=== PATIENT | male | born 1970 | race Caucasian/White ===

== ENCOUNTER 2021-01-13 17:42 | Emergency (ER) | payer BC, SELFPAY ==
[2021-01-13 17:46] VITALS: BP 154/74; PULSE 57; RESP 16; TEMP 36.8; O2SAT 98; BMI 26.6
[2021-01-13 18:05] VITALS: BP 154/74; PULSE 57; RESP 16; TEMP 36.8; O2SAT 98; BMI 26.6
--- NOTE | 2021-01-13 19:08 | HMH.EDUTC ---
[facility] Disposition Clinical Impression: Need for Tdap vaccination Laceration of scalp Qualifiers: Encounter type: initial encounter Qualified Code(s): S01.01XA - Laceration without foreign body of scalp, initial encounter Disposition: Home, Self-Care Condition on Discharge: Good Instructions: DI for Laceration Repair -- [place] Additional Instructions: Keep the wound clean and dry. Watch the for signs of infection, such as redness, swelling, drainage, fever. etc. Take tylenol or ibuprofen for pain. Follow up with her regular doctor. Return in 7 days to have the yulisa removed. GO TO THE ER FOR ANY WORSENING SYMPTOMS OR CONCERNS. Referrals: Joselito Huizar MD [Primary Care Provider] - Time of Disposition: 19:10 Medical Decision Making - Medical Records Medical records reviewed: No: I reviewed the patient's medical records. - Aiden Inquiry Pt receiving controlled substance: No Vital Signs: 01/13/21 17:46 01/13/21 18:05 01/13/21 19:14 Temperature 98.3 F 98.3 F 98.3 F Temperature Source Oral Oral Pulse Rate 57 L Pulse Rate [Right] 57 L 57 L Respiratory Rate 16 16 16 Blood Pressure 154/74 H Blood Pressure [Right Arm] 154/74 H 154/74 H Blood Pressure Mean [Right Arm] 100 100 Blood Pressure Source [Right Arm] Automatic Cuff Automatic Cuff Blood Pressure Position [Right Arm] Sitting Sitting 02 Sat by Pulse Oximetry 98 98 Oxygen Delivery Method Room Air Room Air Orders (Tests/Meds): ED MEDICATIONS Discontinued Medications Generic Name Dose Route Start Last Admin Trade Name Freq PRN Reason Stop Dose Admin Tetanus/Reduced Diphtheria/Acell Pertussis 0.5 ml 01/13/21 18:06 01/13/21 18:30 Tet/Diphth/Pert-Adult 0.5ml Syringe IM 01/13/21 18:07 0.5 ml .ONCE ONE Administration [facility] HPI - General Stated complaint: AO 1545 laceration on head Time Seen by Provider: 01/13/21 19:08 Mode of Arrival: Ambulatory Source of Information: Patient Limitations: No Limitations Description of Symptoms (Recalled from Triage Doc. 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 He received a laceration to his scalp, just above his forehead. He denies any loss of conciousness. - Related Data Allergies Allergy/AdvReac Type Severity Reaction Status Date / Time No Known Allergies Allergy Verified 09/12/19 14:32 - Worker's Comp Is this a Worker's Comp case?: No [facility] History - Hepatitis A Screen Drug use history?: No High risk sexual behaviors?: No History of sexually transmitted infection?: No Currently employed?: No Childcare worker?: No Do you have indoor plumbing?: Yes Do you have electricity?: Yes Attestation statement:: This patient has been screened for Hepatitis A risk factors. I have reviewed the patient's past medical history: Yes - Social History Smoking Status: Never smoker Alcohol Intake: never Alcohol Intake Frequency:: holidays/special occasions only Occupational Status: employed Family Hx:: Non-contributory ROS Obtained: Yes All systems reviewed & no additional complaints - Constitutional Constitutional: Denies chills, Denies fever(s) - Musculoskeletal Musculoskeletal: Denies back pain, Denies neck pain - Integumentary/Breasts Skin/Breast: Reports as per HPI - Neurologic Neurologic: Denies tingling/numbness/burning sensations Physical Exam - General General appearance: alert, in no apparent distress - Head Head exam: atraumatic, normocephalic, normal inspection - Eye Eye exam: Present: normal appearance, PERRL, EOMI - ENT ENT exam: Present: nor
[2021-01-13 19:14] VITALS: BP 154/74; PULSE 57; RESP 16; TEMP 36.8; O2SAT 98
== END 2021-01-13 19:17 | disposition home or self-care (01) ==
PROVIDERS: Emergency Provider Nurse Practitioner Family; PCP Family Medicine
DX: S01.01XA Laceration without foreign body of scalp, initial encounter (principal); W22.8XXA Striking against or struck by other objects, initial encounter; Y92.019 Unspecified place in single-family (private) house as the place of occurrence of the external cause; Z23 Encounter for immunization
CPT/HCPCS: 12002; 90715; 99202; G0463

== ENCOUNTER 2021-01-20 17:08 | Emergency (ER) | payer BC, SELFPAY ==
[2021-01-20 17:10] VITALS: BP 124/81; PULSE 80; RESP 20; TEMP 36.1; O2SAT 98; BMI 34.4
[2021-01-20 17:13] VITALS: BP 124/81; PULSE 80; RESP 20; TEMP 36.1; O2SAT 98
== END 2021-01-20 17:15 | disposition home or self-care (01) ==
LOC: UTC 17:10
PROVIDERS: Emergency Provider Nurse Practitioner; PCP Family Medicine
DX: S01.01XD Laceration without foreign body of scalp, subsequent encounter (principal)

== ENCOUNTER → 2021-11-13 10:47 | Outpatient (CLI) | payer BC, SELFPAY ==
[2021-11-13 12:18] LABS: Chloride 105 mmol/L (98-107)
[2021-11-13 12:19] LABS: Potassium 4.6 mmoL/L (3.5-5.1); Sodium 141 mmol/L (136-145)
[2021-11-13 12:21] LABS: Alanine Aminotransferase 42 U/L (12-78); Anion Gap 13.6 mEq/L (5-15); Aspartate Amino Transferase 33 U/L (17-59); Blood Urea Nitrogen 14 mg/dl (9-20); Carbon Dioxide 27 mmol/L (22.0-30.0); Estimated Glomerular Filt Rate 64 ml/min (>60); GFR (African American) 77 ML/MIN (>60)
[2021-11-13 12:22] LABS: Albumin Level 4.3 g/dl (3.5-5.0); Albumin/Globulin Ratio 1.4 (1.1-1.8); Alkaline Phosphatase 58 U/L (38-126); Bilirubin,Total 0.6 mg/dl (0.2-1.3); Chol/HDL Ratio 5.9 (1-3.5); Cholesterol 241 mg/dl (140-200); HDL Cholesterol 41 mg/dl (40-60); Total Protein,Serum 7.3 g/dl (6.3-8.2); Triglycerides 237 mg/dl (30-150); VLDL Cholesterol 47 mg/dL (0-40)
[2021-11-13 12:27] LABS: Glucose 93 mg/dl (74-100)
[2021-11-13 12:28] LABS: Calcium 9.1 mg/dl (8.4-10.2)
[2021-11-13 12:33] LABS: Direct LDL Cholesterol 159.92 mg/dL (100-129)
== END ==
PROVIDERS: Visit Provider Nurse Practitioner Family
DX: Z00.00 Encounter for general adult medical examination without abnormal findings (principal)
CPT/HCPCS: 36415; 80053; 80061

== ENCOUNTER → 2021-12-03 15:21 | Outpatient (CLI) | payer BC, SELFPAY | PROVIDERS: PCP Nurse Practitioner Family; Visit Provider Internal Medicine Gastroenterology | DX: Z01.812 Encounter for preprocedural laboratory examination; Z11.52 Encounter for screening for COVID-19; Z12.11 Encounter for screening for malignant neoplasm of colon | CPT/HCPCS: C9803; U0003; U0005 ==

== ENCOUNTER 2021-12-05 08:49 | Day surgery (SDC) | payer BC, SELFPAY ==
--- NOTE | 2021-11-25 13:07 | SUR.PREOP ---
11/25/21 @ 1307 colon prep [facility] to [facility] pharm Dr Orourke
[2021-11-29 09:15] VITALS: BMI 30.2
[2021-12-05 09:33] VITALS: BP 108/72; PULSE 51; RESP 16; TEMP 36.3; O2SAT 100
--- NOTE | 2021-12-05 09:45 | HMH.ANESCL ---
[facility] Anesthesia Checklist - Patient Identification Patient Identification: Arm Band, Verbal (Name & ) - Structural Data Admitted From: Home Planned Operative Procedure/s: Colonoscopy Consent for Planned Operative Procedure(s) Verified: Yes Verified Documents: Surgical Consent - Chart Verification Results Verified: None - Airway Assessment C-Spine Mobility Assessed: Yes Dentition: Good Dentition - Neurological Assessment Level of Consciousness: Awake, Alert, Appropriate - Anesthesia Plan Anesthesia Risk discussed: Yes ASA Class: II Anesthesia Type: General [facility] History Medical History: Reports:: Hyperlipidemia Denies:: Cancer, Diabetes Mellitus Type 1, Diabetes Mellitus Type 2, Internal Pacemaker, MRSA, Seizures *Have you ever received a pneumonia vaccine?: No *Have you received a flu vaccine this season?: No Anesthesia experience/problems:: none Other Surgeries: No: Pacemaker Amputation: No Fractures: No - *Social History Last grade of school completed: Advanced degree Smoking Status: Current every day smoker Tobacco Type: smokeless tobacco # Packs/Day (cigarettes): 1 Alcohol Intake: current Alcohol Intake Frequency:: a few times a month Substance Use Type: denies use *Occupational Status:: employed Housing: house Household Members: spouse, family *Travel in the last 8 weeks: None Family Hx:: Non-contributory
[2021-12-05 10:23] VITALS: O2SAT 100
[2021-12-05 10:40] VITALS: BP 134/79; PULSE 81; RESP 18; TEMP 36.2; O2SAT 95
--- NOTE | 2021-12-05 10:41 | HMH.SCOPE ---
- Procedure: Date: 12/05/21 Patient Date of :: 1970 Procedure Performed:: Screening Colonoscopy with biopsy Indications:: Screening colonoscopy Performing Provider:: Jeni Orourke MD Referring Provider:: Joselito Bocanegra MD Sedation:: Propofol Procedure:: After placing the patient in the left lateral decubitus position, the colonoscopy was gently inserted into the rectum and under direct visualization advanced to the cecum which was identified by transillumination in the right lower quadrant, identification of the ileocecal valve, appendiceal orifice, and cecal strap. Color, texture, mucosa, and anatomy of the colon were carefully examined with the scope. Findings:: Anal canal: normal Rectum: normal Sigmoid Small 5 mm polyp was identified and removed with use of forceps Descending colon: normal without polyps or inflammatory changes Splenic flexure: normal Transverse colon: normal without polyps or inflammatory changes Hepatic flexure: normal Ascending colon: normal without polyps or inflammatory changes Cecum: normal Terminal ileum: not visualized Impression: Small sigmoid polyp Specimens:: Sigmoid polyp Recommendations:: Follow up examination in about five years or so, sooner if clinically indicated Complications:: None Estimated blood obtained (mL): 0
[2021-12-05 10:50] VITALS: BP 135/80; PULSE 70; RESP 18; O2SAT 96
[2021-12-05 11:20] VITALS: BP 109/64; PULSE 58; RESP 18; O2SAT 94
== END 2021-12-05 11:10 | disposition home or self-care (01) ==
LOC: OUTP 08:51
PROVIDERS: PCP Nurse Practitioner Family; Visit Provider Internal Medicine Gastroenterology
PROC: 0DJD8ZZ Inspection of Lower Intestinal Tract, Via Natural or Artificial Opening Endoscopic (ICD-10-PCS; CPT 45378; principal; 2021-12-05 10:00)
DX: Z12.11 Encounter for screening for malignant neoplasm of colon (principal); E78.5 Hyperlipidemia, unspecified; Z72.0 Tobacco use; Z79.899 Other long term (current) drug therapy
CPT/HCPCS: 45378

== ENCOUNTER 2023-02-11 05:00 | Emergency (ER) | payer BC, SELFPAY ==
[2023-02-11 05:15] VITALS: BP 154/97; PULSE 57; RESP 22; TEMP 36.6; O2SAT 100; BMI 29.7
--- NOTE | 2023-02-11 05:16 | CT_ITS ---
PROCEDURE INFORMATION: Exam: CT Abdomen And Pelvis Without Contrast Exam date and time: 02/11/2023 5:36 AM Age: 52 years old Clinical indication: Abdominal pain; Prior surgery; Surgery type: Appendectomy; Patient HX: C/O lower abd pain that radiates to right flank; Additional info: Rlq pain TECHNIQUE: Imaging protocol: Computed tomography of the abdomen and pelvis without contrast. Radiation optimization: All CT scans at this facility use at least one of these dose optimization techniques: automated exposure control; mA and/or kV adjustment per patient size (includes targeted exams where dose is matched to clinical indication); or iterative reconstruction. REPORTING DATA: Count of CT and Cardiac NM exams in prior 12 months: This patient has received 0 known CTs and 0 known cardiac nuclear medicine studies in the 12 months prior to the current study. COMPARISON: No relevant prior studies available. FINDINGS: Liver: Multiple liver and splenic granulomas are noted. Gallbladder and bile ducts: A large peripherally calcified gallstone is present. Pancreas: Normal. No ductal dilation. Spleen: See Liver finding. Adrenal glands: Normal. No mass. Kidneys and ureters: 4.2 cm simple appearing right renal cyst is noted. There is a 3 mm stone in the distal right ureter positioned just 1 or 2 cm above the right UVJ with mild to moderate right-sided hydronephrosis and hydroureter. No left-sided stones are present. Stomach and bowel: Unremarkable. No obstruction. No mucosal thickening. Appendix: No evidence of appendicitis. Intraperitoneal space: Unremarkable. No free air. No significant fluid collection. Vasculature: Unremarkable. No abdominal aortic aneurysm. Lymph nodes: Unremarkable. No enlarged lymph nodes. Urinary bladder: Unremarkable as visualized. Reproductive: Unremarkable as visualized. Bones/joints: Unremarkable. No acute fracture. Soft tissues: Unremarkable. IMPRESSION: 3 mm distal right ureteral stone with mild to moderate right-sided hydroureter and hydronephrosis. COMMENTS: Consistent with the [employer]'s Incidental Findings Committee white paper (J Am Brianna Radiol 2018): Any incidental renal lesion less than 1 cm or classified as too small to characterize, or any incidental cystic renal lesion characterized as simple-appearing, is likely benign. No follow-up imaging is recommended for these lesions per consensus recommendations based on imaging criteria.
[2023-02-11 05:21] LABS: Microscopic, Urine URINE MICROSCOPIC (MICROSCOPIC)
[2023-02-11 05:24] LABS: Basophils # 0.1 K/mm3 (0-0.2); Basophils % 1.1 % (0.1-2.0); Eosinophils # 0.2 K/mm3 (0.0-0.4); Eosinophils % 2.6 % (0.1-12.0); Hematocrit 47.2 % (42.0-52.0); Hemoglobin 16.1 g/dL (14.1-18.0); Lymphocytes # 3.3 K/mm3 (0.7-4.5); Lymphocytes % 36.1 % (10-50); Mean Corpuscular HGB Conc 34.2 g/dL (31.8-35.4); Mean Corpuscular Hemoglobin 30.3 pg (27.0-31.2); Mean Corpuscular Volume 88.6 fl (80-94); Mean Platelet Volume 7.9 fl (7.4-10.4); Monocytes # 0.5 K/mm3 (0.1-1.0); Monocytes % 5.6 % (1.7-9.3); Neutrophils % 54.7 % (37.0-80.0); Platelet Count 328 K/mm3 (142-424); Red Blood Count 5.33 M/mm3 (4.60-6.20); Red Cell Distribution Width 12.9 % (11.5-17.5); White Blood Count 9.1 K/mm3 (4.8-10.8)
[2023-02-11 05:30] LABS: Alanine Aminotransferase 100 U/L (12-78); Albumin Level 4.7 g/dl (3.5-5.0); Albumin/Globulin Ratio 1.4 (1.1-1.8); Alkaline Phosphatase 95 U/L (38-126); Anion Gap 15.5 mEq/L (5-15); Aspartate Amino Transferase 53 U/L (17-59); Bilirubin,Total 0.9 mg/dl (0.2-1.3); Blood Urea Nitrogen 16 mg/dl (9-20); Calcium 8.9 mg/dl (8.4-10.2); Carbon Dioxide 24 mmol/L (22.0-30.0); Chloride 104 mmol/L (98-107); Creatinine Clearance Estimated 95 mL/min (50-200); Estimated Glomerular Filt Rate 70 ml/min (>60); GFR (African American) 85 ML/MIN (>60); Globulin 3.3 g/dL (1.3-3.2); Glucose 119 mg/dl (74-100); Potassium 3.5 mmoL/L (3.5-5.1); Sodium 140 mmol/L (136-145)
[2023-02-11 05:31] LABS: Appearance,Urine CLEAR (Clear); Bilirubin,Urine Negative (Negative); Blood, Urine 1+ (Negative); Color,Urine YELLOW (Yellow); Glucose,Urine (UA) Negative (Negative); Ketones,Urine Negative (Negative); Leukocyte Esterase,Urine Negative (Negative); Nitrate,Urine Negative (Negative); Protein,Urine Negative (Negative); Specific Gravity, Urine >= 1.030 (1.005-1.030); Urobilinogen,Urine 0.2 EU/dl (0.2)
[2023-02-11 05:50] LABS: Bacteria,Urine 1+ /lpf; Squamous Epithelial Cell,Urine Occasional #/hpf (0-5)
[2023-02-11 07:03] VITALS: BP 147/78; PULSE 59; RESP 16; TEMP 36.6; O2SAT 100
--- NOTE | 2023-02-11 07:03 | HMH.EDABDPAI ---
Discharge Plan Disposition Patient Disposition: Home, Self-Care Prescriptions Prescriptions: New tamsulosin [Flomax] 0.4 mg capsule 0.4 mg PO DAILY Qty: 10 0RF No Action atorvastatin 20 MG tablet 20 mg PO HS Referrals Follow up/Referrals: Connie Aslton APRN [Primary Care Provider] - See instructions Tuan Barroso MD [Referring] - See instructions Clinical Impressions Clinical Impression: Renal colic on right side, Cholelithiasis Instructions Patient Instructions: DI for Kidney Stones Discharge ED Provider: Terence (ED)Jimi Abdominal Pain HPI General Chief Complaint: Abdominal Pain Stated Complaint: Right side pain,stomach pain no nausea or vomiting Time Seen by Provider: 02/11/23 07:03 Mode of Arrival: Ambulatory Source of Information: Patient, Spouse and Medical Record Limitations: No Limitations Description of Symptoms (Recalled from ER Triage Doc. by RN): Pt states he has right sided abdominal and flank pain that started around 0300 this morning. No hx of kidney stones, states he urinates and feels like he is not completely empty. Pain 7/10. Denies any N/V/D or other symptoms at this time. History of Present Illness HPI narrative: acute onset of rt flank pain this am complaint: flank pain Onset (ago): hour(s) Consistency: colicky Location: R flank Severity: severe Quality: sharp Associated symptoms: denies other symptoms Related Data Home Medications Medication Instructions Recorded Confirmed atorvastatin 20 mg tablet 20 mg PO HS Cholesterol 12/05/21 02/11/23 Previous Rx's Medication Instructions Recorded tamsulosin 0.4 mg capsule (Flomax) 0.4 mg PO DAILY #10 caps 02/11/23 Allergies Allergy/AdvReac Type Severity Reaction Status Date / Time No Known Allergies Allergy Verified 02/11/23 05:23 [facility] Disclaimer: The information contained in this section may have been updated after the patient was seen, as this information can be updated by other users. Social History Smoking Status: Never smoker alcohol intake: current substance use type: denies use current occupational status: employed Travel in the last 8 weeks: None household members: spouse and family housing: house current occupation: [employer] caffeine: Yes ROS Obtained: Yes All systems reviewed & no additional complaints except as documented Physical Exam General General appearance: alert Head Head exam: atraumatic Eye Eye exam: Present PERRL and EOMI ENT ENT exam: Present mucous membranes moist Neck Neck exam: Present trachea midline Respiratory Respiratory exam: Absent respiratory distress Cardiovascular Cardiovascular exam: Present regular rate Abdominal Exam Abdominal exam: Present soft Extremities Exam Extremities exam: Present full ROM Back Exam Back exam: Absent CVA tenderness (R) Neurological Exam Neurological exam: Present alert, oriented X3 and CN II-XII intact Psychiatric Psychiatric exam: Present normal affect Skin Skin exam: Absent rash Medical Decision Making Medical Records Medical records reviewed: Yes I reviewed the patient's medical records. Aiden Inquiry Pt receiving controlled substance: No Vital Signs: 02/11/23 05:15 Temperature 97.9 F Temperature Source Oral Pulse Rate [Right] 57 L Respiratory Rate 22 Blood Pressure [Right Arm] 154/97 H Blood Pressure Mean [Right Arm] 116 Blood Pressure Source [Right Arm] Automatic Cuff Blood Pressure Position [Right Arm] Sitting 02 Sat by Pulse Oximetry 100 Oxygen Delivery Method Room Air Lab Data Lab results reviewed: Yes I reviewed the patient's lab results. Lab Results 02/11/23 05:05: Urine Color Yellow, Urine Appearance Clear, Urine pH 6.0, Ur Specific [place] >= 1.030, Urine Protein Negative, Urine Glucose (UA) Negative, Urine Ketones Negative, Urine Blood 1+, Urine Nitrate Negative, Urine Bilirubin Negative, Urine Urobilinogen 0.2, Ur Leukocyte Esterase Negative, Urine RBC 10-
== END 2023-02-11 07:13 | disposition home or self-care (01) ==
PROVIDERS: Emergency Provider Emergency Medicine; PCP Nurse Practitioner Family
DX: N23 Unspecified renal colic (principal); K80.80 Other cholelithiasis without obstruction
CPT/HCPCS: 74176; 80053; 81001; 85025; 96361; 96374; 96375; 99285; J0131; J2405

== ENCOUNTER 2025-08-08 08:39 | Outpatient (CLI) | payer BC, SELFPAY ==
--- OUTSIDE RECORDS SUMMARY | 2025-08-08 09:03 | XMS_ITS | Clinical Summary ---
Author Organization [facility] Address [address] [place] [id number] Phone [email or web address] Care Team Providers Care Installation Engineer Name Role Phone Unavailable Primary Care Provider Unavailabl e Allergies No known active allergies Medications No known medications Active Problems Problem Noted Date Diagnosed Date Laboratory exam ordered as p art of routine general medical examination 05/21/2011 Overview (04/14/2018): Other malaise and fatigue 05/21/2011 Overview (04/14/2018): Other examination of ears and hearing 11/24/2007 Overview (04/14/2018): Social History Tobacco Use Types Packs/Day Years Used Date Smoking Tobacco: Never Smokeless Tobacco: Current Snuff Intimate Partner Violence Answer Date R ecorded Insults You Not on file 02/26/2021 Threatens You Not on file 02/26/2021 Screams at You Not on file 02/26/2021 Physically Hurt Not on file 02/26/2021 Intimate Partner Violence Score Not on file 02/26/2021 Stress Answer Date Recorded Stress in your Life Not on file 09/19/2024 Dealing with Stress 3 09/19/2024 Sex and Gender Information Value Date Recorded Sex Assigned at Not on file Legal Sex Male 7:50 AM CDT Gender Identity Not on file Sexual Orientation Not on file Last Filed Vital Signs Vital Sign Reading Time Taken Comments Blood Pressure 106/70 01/07/2016 11:32 PM [facility] Pulse 64 01/07/2016 11:32 PM [facility] Temperature - - Respiratory Rate - - Oxygen Saturation - - Inhaled Oxygen Concentration - - Weight 83 kg (183 lb) 01/03/2014 10:37 PM [facility] Height 175.3 cm (5' 9 ) 01/03/2014 10:37 PM [facility] Body Mass Index 27.02 01/03/2014 10:37 PM [facility] Plan of Treatment Health Maintenance Due Date Last Done Comments CT Colonography 1970 Colonoscopy 1970 Colorectal Cancer Screening Combo 1970 DNA Cologuard 1970 Dental Cleaning/Exam 1970 FIT or FOBT Test 1970 HIV Screening 1970 Hepatitis C Screening 1970 Sigmoidoscopy 1970 Annual Preventive Exam 1987 Hep B Infection Screening - Triple Screen 1987 Hepatitis B Immunization (1 of 3 - 19+ 3-dose series) 1988 Tetanus Diphtheria and Pertu ssis Immunization (1 - Tdap) 1988 Zoster Immunization (1 of 2) 2019 Covid-19 Immunization (1 - 2 season) 2025 Influenza Immunization (#1) 2025 HIB Immunization Aged Out No longer e ligible based on patient's age to complete this topic HPV Immunization Aged Out No longer e ligible based on patient's age to complete this topic Hepatitis A Immunization Aged Out No longer eligible based on patient's age to complete this topic Pneumococcal Immunization Aged Out No longer eligible based on patient's age to complete this topic Polio Immunization Aged Out No longer eligible based on patient's age to complete this topic
[2025-08-08 10:05] LABS: Albumin Level 4.5 g/dl (3.5-5.0); Chloride 102 mmol/L (98-107); Potassium 4.2 mmoL/L (3.5-5.1); Sodium 141 mmol/L (136-145)
[2025-08-08 10:08] LABS: Alanine Aminotransferase 38 U/L (12-78); Albumin/Globulin Ratio 1.7 (1.1-1.8); Alkaline Phosphatase 67 U/L (38-126); Anion Gap 15.2 mEq/L (5-15); Aspartate Amino Transferase 33 U/L (17-59); Bilirubin,Total 1.1 mg/dl (0.2-1.3); Blood Urea Nitrogen 10 mg/dl (9-20); Calcium 9.3 mg/dl (8.4-10.2); Carbon Dioxide 28 mmol/L (22.0-30.0); Cholesterol 142 mg/dl (140-200); Creatinine,Serum 1.10 mg/dl (0.66-1.25); Estimated Glomerular Filt Rate 69 ml/min (>60); GFR (African American) 84 ML/MIN (>60); Globulin 2.7 g/dL (1.3-3.2); Glucose 95 mg/dl (74-100); Total Protein,Serum 7.2 g/dl (6.3-8.2); Triglycerides 127 mg/dl (30-150)
[2025-08-08 10:09] LABS: HDL Cholesterol 42 mg/dl (40-60)
== END 2025-08-08 23:59 | disposition home or self-care (01) ==
LOC: LAB 08:40
PROVIDERS: PCP Nurse Practitioner Family; Visit Provider Nurse Practitioner Family
DX: Z00.00 Encounter for general adult medical examination without abnormal findings (principal); E78.5 Hyperlipidemia, unspecified
CPT/HCPCS: 36415; 80053; 80061